=== PATIENT | female | born 1950 | race Caucasian/White ===

== ENCOUNTER 2019-03-23 05:27 | Emergency (ER) | payer OTHER ==
[~2019-03-23] VITALS: Ht 160 cm; Wt 77.1 kg
[2019-03-23] MEDS ORDERED: MACROBID 100 M100 MG PO (12:28)
== END 2019-03-23 12:39 | disposition home or self-care (01) ==
LOC: ER 05:27
DX: R10.11 Right upper quadrant pain (principal); N39.0 Urinary tract infection, site not specified